=== PATIENT | female | born 1975 | race Caucasian/White ===

== ENCOUNTER → 2023-10-30 13:30 | Outpatient (REF) | payer MEDICARE, OTHER, SELFPAY | LOC: WOUND 13:30 | PROVIDERS: ATTENDING PHYSICIAN Surgery; FAMILY PHYSICIAN Family Medicine | DX: L97.522 Non-pressure chronic ulcer of other part of left foot with fat layer exposed (principal); E11.9 Type 2 diabetes mellitus without complications; I42.9 Cardiomyopathy, unspecified; Z95.810 Presence of automatic (implantable) cardiac defibrillator; I50.22 Chronic systolic (congestive) heart failure | CPT/HCPCS: 11042; 99203 ==

== ENCOUNTER → 2023-11-02 15:50 | Outpatient (REF) | payer MEDICARE, OTHER, SELFPAY | LOC: HWRAD 15:50 | PROVIDERS: ATTENDING PHYSICIAN Orthopaedic Surgery; FAMILY PHYSICIAN Family Medicine | DX: S90.32XA Contusion of left foot, initial encounter (principal) | CPT/HCPCS: 73700 ==

== ENCOUNTER 2023-11-05 06:39 | Emergency (ER) | payer MEDICARE, OTHER, SELFPAY ==
[2023-11-05 06:41] VITALS: BP 110/52
[2023-11-05 07:24] VITALS: BMI 30.8
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
[2023-11-05 08:02] LABS: % Basophils 0.6 % (0-2); % Eosinophils 1.8 % (0-6); % Immature Granulocytes 0.4 % (0-0.5); % Lymphocytes 28.7 % (20.5-51.1); % Monocytes 9.6 % (1.7-9.3); % Neutrophils 58.9 % (42.2-75.2); Absolute Basophils 0.1 10^3/uL (0-0.2); Absolute Eosinophils 0.2 10^3/uL (0-0.7); Absolute Lymphocytes 3.1 10^3/uL (1.2-3.4); Absolute Neutrophils 6.4 10^3/uL (1.4-6.5); Hematocrit 39.6 % (37.0-47.0); Hemoglobin 13.3 g/dL (12.0-16.0); Mean Corp Hgb Conc. 33.6 g/dL (33.0-37.0); Mean Corpuscular Hgb 29.4 pg (27.0-31.0); Mean Corpuscular Volume 87.6 fL (81.0-99.0); Mean Platelet Volume 11.2 fL (7.4-10.4); Nucleated Red Blood Cells % 0 %; Platelet Count 255 10^3/uL (130-400); Red Blood Cell Count 4.52 10^6/uL (4.20-5.40); White Blood Cell Count 10.8 10^3/uL (4.8-10.8)
[2023-11-05 08:17] LABS: Lactic Acid 0.8 mmol/L (0.7-2.0)
[2023-11-05 08:18] LABS: ALT (SGPT) 18 U/L (0-35); AST (SGOT) 22 U/L (14-36); Albumin 4.3 g/dl (3.5-5.0); Alkaline Phosphatase 69 U/L (38-126); Blood Urea Nitrogen 20 mg/dl (7-17); Calcium 9.6 mg/dl (8.4-10.2); Carbon Dioxide 29 mmol/L (22-30); Chloride 101 mmol/L (98-107); Estimated Creatinine Clearance 99 ml/min; Glucose 102 mg/dl (70-99); Sodium 135 mmol/L (135-145); Total Bilirubin 0.3 mg/dl (0.2-1.3); Total Protein 7.2 g/dl (6.3-8.2); eGFR > 60.00
[2023-11-05] MEDS: BACTRIM DS 800 MG/160 MG 1 TABLET PO (11:44)
[2023-11-05] MEDS: TORADOL 15 MG IV (11:45)
[2023-11-05] MEDS: VIBRAMYCIN 100 MG PO (11:45)
[2023-11-05 13:48] VITALS: BP 114/76
== END 2023-11-05 13:20 | disposition home or self-care (01) ==
LOC: EMR 06:39
PROVIDERS: Nurse Practitioner; EMERGENCY PHYSICIAN Emergency Medicine; FAMILY PHYSICIAN Family Medicine
DX: S91.302A Unspecified open wound, left foot, initial encounter (principal); X58.XXXA Exposure to other specified factors, initial encounter; E11.42 Type 2 diabetes mellitus with diabetic polyneuropathy; Z95.810 Presence of automatic (implantable) cardiac defibrillator; Z79.84 Long term (current) use of oral hypoglycemic drugs
CPT/HCPCS: 99284; 96374; 80053; 83605; 85025; 87040; 87070; 87147; 87186; 87205

== ENCOUNTER → 2023-11-06 13:52 | Outpatient (REF) | payer MEDICARE, OTHER, SELFPAY | LOC: WOUND 13:52 | PROVIDERS: ATTENDING PHYSICIAN Surgery; FAMILY PHYSICIAN Family Medicine | DX: L97.522 Non-pressure chronic ulcer of other part of left foot with fat layer exposed (principal); E11.9 Type 2 diabetes mellitus without complications; I42.9 Cardiomyopathy, unspecified; Z95.810 Presence of automatic (implantable) cardiac defibrillator; I50.22 Chronic systolic (congestive) heart failure | CPT/HCPCS: 99213 ==

== ENCOUNTER → 2023-11-22 10:22 | Outpatient (REF) | payer MEDICARE, OTHER, SELFPAY | LOC: RAD 10:22 | PROVIDERS: ATTENDING PHYSICIAN Orthopaedic Surgery; FAMILY PHYSICIAN Family Medicine | DX: M79.672 Pain in left foot (principal); S90.32XA Contusion of left foot, initial encounter | CPT/HCPCS: 76882 ==

== ENCOUNTER → 2023-12-06 10:34 | Outpatient (REF) | payer MEDICARE, OTHER, SELFPAY | LOC: RAD 10:34 | PROVIDERS: ATTENDING PHYSICIAN Student in an Organized Health Care Education/Training Program; FAMILY PHYSICIAN Family Medicine; REFERRING PHYSICIAN Orthopaedic Surgery | DX: M79.672 Pain in left foot (principal) | CPT/HCPCS: 76881 ==

== ENCOUNTER → 2024-01-24 08:29 | Outpatient (REF) | payer MEDICARE, OTHER, SELFPAY | LOC: RAD 08:29 | PROVIDERS: ATTENDING PHYSICIAN Student in an Organized Health Care Education/Training Program; FAMILY PHYSICIAN Family Medicine | DX: T14.8XXA Other injury of unspecified body region, initial encounter (principal); M79.672 Pain in left foot | CPT/HCPCS: 76881 ==

== ENCOUNTER → 2024-05-31 15:59 | Outpatient (REF) | payer MEDICARE, OTHER, SELFPAY | LOC: WDC 15:59 | PROVIDERS: ATTENDING PHYSICIAN Obstetrics & Gynecology; FAMILY PHYSICIAN Family Medicine | DX: Z12.31 Encounter for screening mammogram for malignant neoplasm of breast (principal); R92.8 Other abnormal and inconclusive findings on diagnostic imaging of breast | CPT/HCPCS: 77063; 77067 ==

== ENCOUNTER 2024-08-11 16:15 | Emergency (ER) | payer MEDICARE, OTHER, SELFPAY ==
[2024-08-11 16:21] VITALS: BP 108/66
[2024-08-11 16:47] LABS: % Basophils 0.3 % (0-2); % Immature Granulocytes 0.3 % (0-0.5); % Lymphocytes 21.2 % (20.5-51.1); % Neutrophils 68.2 % (42.2-75.2); Absolute Eosinophils 0.1 10^3/uL (0-0.7); Absolute Lymphocytes 2.2 10^3/uL (1.2-3.4); Absolute Monocytes 0.9 10^3/uL (0.1-0.6); Absolute Neutrophils 7.1 10^3/uL (1.4-6.5); Hematocrit 40.2 % (37.0-47.0); Mean Corp Hgb Conc. 34.8 g/dL (33.0-37.0); Mean Corpuscular Hgb 30.7 pg (27.0-31.0); Mean Corpuscular Volume 88.2 fL (81.0-99.0); Mean Platelet Volume 10.6 fL (7.4-10.4); Nucleated Red Blood Cells % 0 %; Platelet Count 241 10^3/uL (130-400); Red Blood Cell Count 4.56 10^6/uL (4.20-5.40); Red Cell Dist. Width 11.9 % (11.5-14.5); White Blood Cell Count 10.4 10^3/uL (4.8-10.8)
[2024-08-11 17:00] LABS: ALT (SGPT) 27 U/L (0-35); AST (SGOT) 26 U/L (14-36); Albumin 4.4 g/dl (3.5-5.0); Alkaline Phosphatase 46 U/L (38-126); Blood Urea Nitrogen 15 mg/dl (7-17); Calcium 10.1 mg/dl (8.4-10.2); Carbon Dioxide 31 mmol/L (22-30); Chloride 96 mmol/L (98-107); Glucose 104 mg/dl (70-99); Lipase 109 U/L (23-300); Potassium 3.7 mmol/L (3.5-5.1); Sodium 137 mmol/L (135-145); Total Bilirubin 0.6 mg/dl (0.2-1.3); Total Protein 7.3 g/dl (6.3-8.2); eGFR > 60.00
[2024-08-11 17:42] LABS: Urine Albumin Negative (Neg - Trace); Urine Bilirubin Negative (Negative); Urine Character Very Cloudy (Clear); Urine Color Yellow; Urine Glucose 3+ (Negative); Urine Ketone Negative (Negative); Urine Leukocyte Negative (Negative); Urine Nitrite Negative (Negative); Urine Occult Blood Negative (Negative); Urine Specific Gravity 1.015 (<1.030); Urine Urobilinogen Negative (Neg - 1+)
--- NOTE | 2024-08-11 18:19 | EDRN ---
Shauna YUEN in room w/ pt.
--- NOTE | 2024-08-11 18:20 | EDRN ---
Pt arrives for severe abd pain all over abd, tight feeling, constant, 10/10. Pt states it started on Monday. Pt states she has been on Ozempec for the past year. Pt has had nausea, no vomiting today but did yesterday. Pt's last BM per pt was today
and normal for her. Pt states no urinary problems (takes lasix and at her normal). Unable to eat yesterday or today. Pt only able to take small sips.
[2024-08-11 18:23] VITALS: BMI 29.2
--- NOTE | 2024-08-11 18:30 | ED.GENMED ---
History of Present Illness
General
Chief Complaint: Abdominal Pain
Source: patient
Exam Limitations: none
Time Seen by Provider: 08/11/24 17:59
History of Present Illness
History of Present Illness:
This is a 49 year old female that comes in with c/o abd pain. States that she has been on Ozempic for the past 1.5 years. States that she is at the highest dose of 2mg. States that she saw her PCP last week. 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 States that some to the medication squared out. States that she put on a new needle and set it for 1mg and gave herself a second injection. States that now she has this
sharp abd pain, was vomiting yesterday and the pain was so bad today that she was crying. States that she is nauseated. States that she had chills on the way here. States that she normally has a headache. Denies any fever, chest pain, SOB, vomiting
today, diarrhea, dizziness, urinary burning.
Past History
Past History
ED Past Medical History: Hypercholesterolemia, NIDDM, Psychiatric (Anxiety, Depression) and Other (Hereditary cardiomyopathy status post AICD)
ED Past Surgical History: Cardiac (Pacer/defib), (X 2) and Other (Deviated septum, Vein stripping with vein ablation, tummy tuck)
Social History
Tobacco: Non-smoker
Alcohol: None
Personal:
Living: with family
Family History
Family History: Other (Hereditary cardiomyopathy)
Review of Systems
Review of Systems
All Other Systems: ROS reviewed and negative except as documented in HPI and ROS
Constitutional: Reports chills; Denies fever
EENT: Reports no symptoms
Respiratory: Reports no symptoms; Denies cough or trouble breathing
Cardiac: Reports no symptoms; Denies chest pain
ABD/GI: Reports abdominal pain and nausea; Denies vomiting or diarrhea
: Reports no symptoms; Denies dysuria, frequency or urgency
Musculoskeletal: Reports no symptoms
Skin: Reports no symptoms
Neurological: Reports headache (this is normal for patient); Denies dizzy
Psychiatric: Reports no symptoms
Phy Exam
General Physical Exam
General Presentation: mild distress
General age: appears stated age
General Skin: warm and dry
General Habitus: normal
General Mental: alert
General Hydration: dry mucous membranes
ENT Exam
ENT Exam: TM's normal, pharynx normal and neck supple
Eye Exam
Eye Exam: EOMI
Cardiovascular Exam
Cardiovascular Exam: regular rate/rhythm, no edema, no murmur and normal peripheral pulses
Pulmonary Exam
Pulmonary Exam: lungs clear, no respiratory distress, no rales, chest non tender, no crackles, no rhonchi, no wheezing and no cough
Gastrointestinal Exam
Gastrointestinal Exam: normal bowel sounds, soft, no organomegaly, no pulsatile mass, non distended and tender (epigastric and upper abd tenderness with palpation)
Musculoskeletal Exam
Musculoskeletal Exam: full ROM and no edema
Skin Exam
Skin Exam: normal color, warm/dry, no rash and no petechia
Psychiatric Exam
Psychiatric Exam: normal mood/affect
Course
Orders/Labs/Results
Orders:
Orders
08/11/24 16:35
Complete Blood Count/With Diff Urgent
Comprehensive Metabolic Panel Urgent
HCG, Serum Qualitative Screen Urgent
Comment: ADDON
Lipase Urgent
08/11/24 17:09
Urinalysis Reflex To Culture Urgent
Date Specimen was Collected: 08/11/24
Time Specimen was Collected: 16:29
08/11/24 18:29
0.9% Sodium Chloride 1000 ml [Nss] 1,000 ml IV BOLUS
Ketorolac [Toradol] 30 mg IV NOW STA
Pantoprazole [Protonix IV] 40 mg IV NOW STA
US Abdomen Complete/Upper Urgent
Comment:
Reason For Exam: Upper abd pain
08/11/24 18:32
Ondansetron Injectable [Zofran] 4 mg IV NOW STA
08/11/24 20:53
CT Abd/pelvis W Iv Cont Urgent
Comment:
Reason For Exam: Right lower abd pain
08/11/24 20:57
Add On- LAB Urgent
Tests Added?: HCG
Abnormal Lab Results
08/11/24 08/11/24
16:35 17:09
MPV 10.6 H fL
(7.4-10.4)
Absolute Neuts (auto) 7.1 H 10^3/uL
(1.4-6.5)
Absolute Monos (auto) 0.9 H 10^3/uL
(0.1-0.6)
Chloride 96 L mmol/L
(98-107)
Carbon Dioxide 31 H mmol/L
(22-30)
Glucose 104 H mg/dl
(70-99)
Urine Glucose 3+ A
(Negative)
08/11/24 16:35
08/11/24 16:35
chloride slightly low. carbon dioxide slightly elevated. Glucose nonfasting. Urine negative for infection. Lipase normal at 109
Vital Signs
Initial and Last Documented VS:
Initial Vital Signs
Temp Pulse Resp BP Pulse Ox
97.7 F 65 18 108/66 100
08/11/24 16:21 08/11/24 16:21 08/11/24 16:21 08/11/24 16:21 08/11/24 16:21
Last Documented Vital Signs
Temp Pulse Resp BP Pulse Ox
97.7 F 58 16 105/61 98
08/11/24 16:21 08/11/24 18:35 08/11/24 18:35 08/11/24 21:00 08/11/24 21:00
MDM/Problems Addressed
Differential Diagnosis Includes:
Gallbladder disease, Pancreatitis,
will get labs US, given IV fluids and medicate for nausea and pain.
MDM/Problems Addressed:
This is a 49 year old female that comes in with c/o abd pain. States that she has been on Ozempic for the past 1.5 years. State that she had given herself her injection and the needle popped out so she gave herself another 1mg but she didn't know
how much she got in the first time. State that she is on 2mg and that is the max dose. States that she has now had sharp abd pain with vomiting yesterday and nausea today with the pain.
Will check labs, US, give IV fluids and medicate for pain.
Back into see patient. Explained that the US shows that her liver is slightly enlarged but otherwise normal. Will get CT scan.
Back into see patient. Patient states that she is feeling better. Explained that her CT scan is also normal. Patient to increase her water intake daily. Follow up with the family doctor. Explained that she should not take a second injection even if
some of the medication squats out. Patient to return with any concerns.
Chronic conditions affecting care: DM
Acute Exacerbation and/or Progression of Chronic Illness: DM
*Radiology
Radiology exam reviewed: radiology read reviewed (US=Hepatomegaly. No gallstones or bile duct dilation. The pancreas and aorta/IVC are obscured by bowel gas. CT-NO significant abnormality identified in the abdomen or pelvis, as described above.
Normal appendix. )
*Pulse Oximetry
Patient hypoxic: no
*EKG
Interpreted by ED Provider?: NA
Rate: EKG- N/A
*Retirement Village Manager Interpretation
Rate: Retirement Village Manager- N/A
*Critical Care Note
Total Time (30-74mins, 75-104mins- exclusive of procedures): Not Applicable
ED Attending Note
-
Portions of this chart may have been created with voice recognition software.� Occasional wrong word or��sound alike� substitutions may have occurred due to the inherent limitations of voice recognition software.
Discharge Plan
Departure
Patient Disposition: Home (Routine Discharge)
Date of Disposition: 08/11/24
Time of Disposition: 23:40
Patient with high blood pressure during this ER visit?: No
Condition: Good
Covid-19: Not Applicable
Discharge Problem:
Abdominal pain
Instructions: Abdominal Pain
Prescriptions:
No Action
furosemide 40 MG tablet
40 mg PO DAILY
fexofenadine [Heydi] 60 MG tablet
60 mg PO DAILY PRN (Reason: seasonal allergies)
lisinopril 20 MG tablet
10 mg PO HS
spironolactone 25 MG tablet
25 mg PO DAILY
lorazepam 1 MG tablet
1 mg PO Q4HPRN PRN (Reason: anxiety)
magnesium 200 MG tablet
400 mg PO DAILY
atorvastatin 10 MG tablet
20 mg PO DAILY
atomoxetine [Strattera] 60 MG capsule
60 mg PO DAILY
lorazepam 2 MG tablet
2 mg PO HS
diphenhydramine HCl [Banophen] 25 MG capsule
25 mg PO Q4HPRN PRN (Reason: allergies)
sitagliptin phosphate [Januvia] 100 MG tablet
100 mg PO DAILY
ivabradine [Corlanor] 7.5 MG tablet
7.5 mg PO BID
empagliflozin [Jardiance] 10 MG tablet
10 mg PO DAILY
melatonin 3 MG tablet
12 mg PO HS
Ascorbic Acid/Ascorbate Sodium [Vitamin C 500 Mg Tablet Chew] 500 MG Tab.Chew
1,500 mg PO DAILY
bupropion HCl 100 MG tablet sustained-release 12 hr
100 mg PO DAILY
vitamin B complex 1 TAB tablet
1 tab PO DAILY
kkbyhltb-mvi-vavfs acid-lutein 1 EACH tablet,chewable
2 ea PO DAILY
inulin [Fiber Gummies] 2 GM tablet,chewable
4 gm PO QPM
carvedilol phosphate 40 MG capsule, ER multiphase 24 hr
80 mg PO HS
oxycodone-acetaminophen 5 MG/325 MG tablet
1 tab PO Q6HPRN PRN (Reason: moderate post procedure pain) Qty: 8 0RF
amoxicillin-pot clavulanate 875-125 mg tablet
1 tab PO BID Qty: 20 0RF
mupirocin 2 % ointment
1 applic topical TID Qty: 50 0RF
Referrals:
Sarthak Matthews MD [Family Provider] - Follow up in 2-3 days
Activity Restrictions/Additional Instructions:
As discussed, your blood work is normal and your urine is negative for infection. Please increase your water intake to 8-8oz glasses daily. Please do not take a second injection even if any medication squirts out. Follow up with the family doctor
for recheck. IF YOU HAVE ANY OTHER CONCERNS PLEASE RETURN TO THE EMERGENCY ROOM .
Interventions
Interventions:
*Risk Screen - Suicide Last Done: 08/11/24 16:21
*General Assessment Last Done: 08/11/24 18:24
*Neglect/Abuse Screening Last Done: 08/11/24 16:21
ED- Fall Risk Assessment Last Done: 08/11/24 18:24
*ED COVID-19 Vaccine History Last Done: 08/11/24 18:24
KZ-Vccpfk-Uwlrikwqab Assessment Last Done: 08/11/24 18:50
Discharge Date and Time
Print Language: WELSH
[2024-08-11 18:35] VITALS: BP 92/57
[2024-08-11] MEDS: NSS 1000 IV (18:52)
[2024-08-11] MEDS: TORADOL 30 MG IV (18:53)
[2024-08-11] MEDS: PROTONIX IV 40 MG IV (18:53)
[2024-08-11] MEDS: ZOFRAN 4 MG IV (18:54)
--- NOTE | 2024-08-11 19:29 | EDRN ---
Recorded notes from 18:50 done by Renée Wu RN not Renée Horvath RN.
[2024-08-11 20:37] VITALS: BP 101/64
[2024-08-11 21:00] VITALS: BP 105/61
[2024-08-11 21:03] VITALS: BP 93/57
[2024-08-11 21:31] LABS: HCG, Serum Qualitative Screen Negative
[2024-08-11 22:00] VITALS: BP 91/49
[2024-08-12 00:08] VITALS: BP 98/56
[2024-08-12 00:11] VITALS: BP 98/56
== END 2024-08-12 00:15 | disposition home or self-care (01) ==
LOC: EMR 16:15
PROVIDERS: Emergency Medicine; EMERGENCY PHYSICIAN Emergency Medicine; FAMILY PHYSICIAN Surgery
DX: R10.9 Unspecified abdominal pain (principal); E78.00 Pure hypercholesterolemia, unspecified; E11.9 Type 2 diabetes mellitus without complications; F41.8 Other specified anxiety disorders; I42.9 Cardiomyopathy, unspecified; Z79.85 Long-term (current) use of injectable non-insulin antidiabetic drugs; Z95.810 Presence of automatic (implantable) cardiac defibrillator
CPT/HCPCS: 99284; 96374; 96375; 96361; 74177; 76700; 80053; 81003; 83690; 84703; 85025; Q9967

== ENCOUNTER 2024-08-25 18:12 | Emergency (ER) | payer MEDICARE, SELFPAY ==
[2024-08-25 18:14] VITALS: BP 125/87
[2024-08-25 18:29] LABS: % Basophils 0.5 % (0-2); % Eosinophils 1.2 % (0-6); % Immature Granulocytes 0.3 % (0-0.5); % Lymphocytes 21.2 % (20.5-51.1); % Monocytes 9.3 % (1.7-9.3); % Neutrophils 67.5 % (42.2-75.2); Absolute Basophils 0.1 10^3/uL (0-0.2); Absolute Eosinophils 0.1 10^3/uL (0-0.7); Absolute Lymphocytes 2.2 10^3/uL (1.2-3.4); Absolute Monocytes 0.9 10^3/uL (0.1-0.6); Absolute Neutrophils 6.8 10^3/uL (1.4-6.5); Hematocrit 42.5 % (37.0-47.0); Hemoglobin 14.7 g/dL (12.0-16.0); Mean Corp Hgb Conc. 34.6 g/dL (33.0-37.0); Mean Corpuscular Volume 86.7 fL (81.0-99.0); Mean Platelet Volume 10.5 fL (7.4-10.4); Nucleated Red Blood Cells % 0 %; Platelet Count 265 10^3/uL (130-400); Red Cell Dist. Width 11.9 % (11.5-14.5); White Blood Cell Count 10.1 10^3/uL (4.8-10.8)
[2024-08-25 18:45] LABS: Lactic Acid 1.4 mmol/L (0.7-2.0)
[2024-08-25 18:48] LABS: HCG, Serum Qualitative Screen Negative
[2024-08-25 18:53] LABS: ALT (SGPT) 22 U/L (0-35); AST (SGOT) 28 U/L (14-36); Albumin 4.7 g/dl (3.5-5.0); Alkaline Phosphatase 50 U/L (38-126); Blood Urea Nitrogen 15 mg/dl (7-17); Calcium 10.2 mg/dl (8.4-10.2); Carbon Dioxide 25 mmol/L (22-30); Chloride 99 mmol/L (98-107); Glucose 122 mg/dl (70-99); Lipase 124 U/L (23-300); Potassium 4.4 mmol/L (3.5-5.1); Sodium 133 mmol/L (135-145); Total Bilirubin 0.8 mg/dl (0.2-1.3); Total Protein 7.7 g/dl (6.3-8.2); eGFR > 60.00
[2024-08-25] MEDS: TORADOL 30 MG IV (19:54)
[2024-08-25] MEDS: ZOFRAN 4 MG IV (19:54)
[2024-08-25] MEDS: NSS 1000 IV (19:59)
[2024-08-25 20:01] VITALS: BMI 29.1
[2024-08-25] MEDS: ATIVAN 1 MG PO (20:27)
[2024-08-25] MEDS: MORPHINE SULFATE 4 MG IV (20:58)
--- NOTE | 2024-08-25 23:25 | ED.GENMED ---
History of Present Illness
General
Chief Complaint: Abdominal Symptoms
Source: patient
Exam Limitations: none
Time Seen by Provider: 08/25/24 19:32
Nursing documentation reviewed up to this point in time: agreed with
History of Present Illness
History of Present Illness:
Patient to ED wt complaint of severe diffuse abd. pain. SHe was seen here 2 weeks ago for same. Labs, CT neg at that time. Denies fever/chills. Reports nausea and vomiting. States she is currently on ozempic. She held a dose after her last ED
visit and her symptoms resolved. She took her regular dose on Monday and now symptoms have returned. Brought to ED by spouse for eval.
Past History
Past History
ED Past Medical History: Hypercholesterolemia, NIDDM, Psychiatric (Anxiety, Depression) and Other (Hereditary cardiomyopathy status post AICD)
ED Past Surgical History: Cardiac (Pacer/defib), (X 2) and Other (Deviated septum, Vein stripping with vein ablation, tummy tuck)
Social History
Tobacco: Non-smoker
Alcohol: None
Personal:
Living: with family
Family History
Family History: Other (Hereditary cardiomyopathy)
Review of Systems
Review of Systems
Allergies reviewed?: Yes
All Other Systems: ROS reviewed and negative except as documented in HPI and ROS
Constitutional: Reports no symptoms
EENT: Reports no symptoms
Respiratory: Reports no symptoms
Cardiac: Reports no symptoms
ABD/GI: Reports abdominal pain, nausea and vomiting
: Reports no symptoms
Musculoskeletal: Reports no symptoms
Skin: Reports no symptoms
Neurological: Reports no symptoms
Psychiatric: Reports no symptoms
Phy Exam
General Physical Exam
General Presentation: moderate distress
General age: appears stated age
General Skin: warm and dry
General Habitus: normal
General Mental: alert
Cardiovascular Exam
Cardiovascular Exam: regular rate/rhythm and no edema
Pulmonary Exam
Pulmonary Exam: lungs clear and no respiratory distress
Gastrointestinal Exam
Gastrointestinal Exam: normal bowel sounds, soft, no organomegaly, non distended and no cva tenderness
Palpation: generalized: Moderate tenderness
Musculoskeletal Exam
Musculoskeletal Exam: full ROM and neuro vasc intact
Skin Exam
Skin Exam: normal color, warm/dry and no rash
Psychiatric Exam
Psychiatric Exam: normal mood/affect
Course
Orders/Labs/Results
Orders:
Orders
08/25/24 18:17
Test Result ONCE
08/25/24 18:22
Complete Blood Count/With Diff Urgent
Comprehensive Metabolic Panel Urgent
HCG, Serum Qualitative Screen Urgent
Lactic Acid Urgent
Lipase Urgent
08/25/24 18:38
Electrocardiogram (*1) Urgent
Reason for Study: Palpitations
EKG- Treatment ONCE
08/25/24 19:44
0.9% Sodium Chloride 1000 ml [Nss] 1,000 ml IV BOLUS
Ketorolac [Toradol] 30 mg IV NOW STA
Ondansetron Injectable [Zofran] 4 mg IV NOW STA
08/25/24 20:26
Lorazepam [Ativan] 1 mg .ROUTE .STK-MED ONE
08/25/24 20:27
Lorazepam [Ativan] 1 mg PO NOW STA
08/25/24 20:57
Morphine Sulfate 4 mg .ROUTE .STK-MED ONE
Morphine Sulfate 4 mg IV NOW STA
08/25/24 21:05
CT Abd/pelvis W Iv Cont Urgent
Comment:
Reason For Exam: severe abd. pain
Abnormal Lab Results
08/25/24
18:22
MPV 10.5 H fL
(7.4-10.4)
Absolute Neuts (auto) 6.8 H 10^3/uL
(1.4-6.5)
Absolute Monos (auto) 0.9 H 10^3/uL
(0.1-0.6)
Sodium 133 L mmol/L
(135-145)
Glucose 122 H mg/dl
(70-99)
08/25/24 18:22
08/25/24 18:22
Vital Signs
Initial and Last Documented VS:
Initial Vital Signs
Temp Pulse Resp BP Pulse Ox
97.3 F 89 20 125/87 99
08/25/24 18:14 08/25/24 18:14 08/25/24 18:14 08/25/24 18:14 08/25/24 18:14
Last Documented Vital Signs
Temp Pulse Resp BP Pulse Ox
98.6 F 95 18 125/87 100
08/25/24 22:24 08/25/24 20:06 08/25/24 20:06 08/25/24 18:14 08/25/24 21:00
*Radiology
Radiology exam reviewed: radiology read reviewed
*Pulse Oximetry
Patient hypoxic: no
*Critical Care Note
Total Time (30-74mins, 75-104mins- exclusive of procedures): Not Applicable
Update Note
Update Note:
Patient improved iwth IVF and IV morphine. CT reviewed, no findings to explain her symptoms. She is concerned that the ozempic she is prescribed is causing her symptoms. SHe will hold dose and follow up with PCP in AM. VSS, afebrile. Labs
reviewed with her. Given instructions on s/s to return to ED and she is agreeable to plan.
ED Attending Note
-
Portions of this chart may have been created with voice recognition software.� Occasional wrong word or��sound alike� substitutions may have occurred due to the inherent limitations of voice recognition software.
Discharge Plan
Departure
Patient Disposition: Home (Routine Discharge)
Date of Disposition: 08/25/24
Time of Disposition: 22:11
Patient with high blood pressure during this ER visit?: No
Condition: Good
Covid-19: Not Applicable
Discharge Problem:
Abdominal pain
Instructions: Abdominal Pain
Prescriptions:
No Action
furosemide 40 MG tablet
40 mg PO DAILY
fexofenadine [Heydi] 60 MG tablet
60 mg PO DAILY PRN (Reason: seasonal allergies)
lisinopril 20 MG tablet
10 mg PO HS
spironolactone 25 MG tablet
25 mg PO DAILY
lorazepam 1 MG tablet
1 mg PO Q4HPRN PRN (Reason: anxiety)
magnesium 200 MG tablet
400 mg PO DAILY
atorvastatin 10 MG tablet
20 mg PO DAILY
atomoxetine [Strattera] 60 MG capsule
60 mg PO DAILY
lorazepam 2 MG tablet
2 mg PO HS
diphenhydramine HCl [Banophen] 25 MG capsule
25 mg PO Q4HPRN PRN (Reason: allergies)
sitagliptin phosphate [Januvia] 100 MG tablet
100 mg PO DAILY
ivabradine [Corlanor] 7.5 MG tablet
7.5 mg PO BID
empagliflozin [Jardiance] 10 MG tablet
10 mg PO DAILY
melatonin 3 MG tablet
12 mg PO HS
Ascorbic Acid/Ascorbate Sodium [Vitamin C 500 Mg Tablet Chew] 500 MG Tab.Chew
1,500 mg PO DAILY
bupropion HCl 100 MG tablet sustained-release 12 hr
100 mg PO DAILY
vitamin B complex 1 TAB tablet
1 tab PO DAILY
hsqkieuw-brd-hrifw acid-lutein 1 EACH tablet,chewable
2 ea PO DAILY
inulin [Fiber Gummies] 2 GM tablet,chewable
4 gm PO QPM
carvedilol phosphate 40 MG capsule, ER multiphase 24 hr
80 mg PO HS
oxycodone-acetaminophen 5 MG/325 MG tablet
1 tab PO Q6HPRN PRN (Reason: moderate post procedure pain) Qty: 8 0RF
amoxicillin-pot clavulanate 875-125 mg tablet
1 tab PO BID Qty: 20 0RF
mupirocin 2 % ointment
1 applic topical TID Qty: 50 0RF
Referrals:
Alejandro Graves MD [Active] - Call in 1-3 days for appt
Sarthak Matthews MD [Family Provider] -
Activity Restrictions/Additional Instructions:
Return to the emergency department immediately for any changes in/worsening of your symptoms.
Interventions
Interventions:
*Risk Screen - Suicide Last Done: 08/25/24 22:31
*General Assessment Last Done: 08/25/24 18:14
*Neglect/Abuse Screening Last Done: 08/25/24 20:00
ED- Fall Risk Assessment Last Done: 08/25/24 20:06
*ED COVID-19 Vaccine History Last Done: 08/25/24 20:00
*Nursing Disposition Last Done: 08/25/24 22:31
XA-Lffngh-Aqdjomirxb Assessment Last Done: 08/25/24 20:06
Discharge Date and Time
Discharge Date/Time: 08/25/24 22:32
Print Language: LIBYAN
== END 2024-08-25 22:32 | disposition home or self-care (01) ==
LOC: EMR 18:12
PROVIDERS: EMERGENCY PHYSICIAN Emergency Medicine; FAMILY PHYSICIAN Surgery
DX: R10.84 Generalized abdominal pain (principal); R11.2 Nausea with vomiting, unspecified; E11.9 Type 2 diabetes mellitus without complications; E78.00 Pure hypercholesterolemia, unspecified; I42.9 Cardiomyopathy, unspecified; Z95.810 Presence of automatic (implantable) cardiac defibrillator; Z79.85 Long-term (current) use of injectable non-insulin antidiabetic drugs
CPT/HCPCS: 96374; 96375; 96361; 99284; 74177; 80053; 83605; 83690; 84703; 85025; 93005; Q9967

== ENCOUNTER 2025-04-03 22:47 | Emergency (ER) | payer MEDICARE, SELFPAY ==
[2025-04-03 22:48] VITALS: BP 95/66
[2025-04-03 23:35] VITALS: BP 98/56
[2025-04-03 23:49] LABS: Hematocrit 42.9 % (37.0-47.0); Hemoglobin 14.7 g/dL (12.0-16.0); Mean Corp Hgb Conc. 34.3 g/dL (33.0-37.0); Mean Corpuscular Volume 86.8 fL (81.0-99.0); Nucleated Red Blood Cells % 0 %; Platelet Count 224 10^3/uL (130-400); Red Cell Dist. Width 12.4 % (11.5-14.5)
[2025-04-04] VITALS: BP 98/72
[2025-04-04 00:08] LABS: ALT (SGPT) 23 U/L (0-35); AST (SGOT) 23 U/L (14-36); Albumin 4.7 g/dl (3.5-5.0); Alkaline Phosphatase 49 U/L (38-126); Blood Urea Nitrogen 19 mg/dl (7-17); Calcium 10.0 mg/dl (8.4-10.2); Carbon Dioxide 30 mmol/L (22-30); Chloride 100 mmol/L (98-107); Glucose 125 mg/dl (70-99); Potassium 3.6 mmol/L (3.5-5.1); Sodium 138 mmol/L (135-145); Total Protein 7.8 g/dl (6.3-8.2); eGFR > 60.00
[2025-04-04] MEDS: NSS 1000 IV (00:11)
[2025-04-04] MEDS: REGLAN 5 MG IV (00:12)
--- NOTE | 2025-04-04 00:20 | ED.GENMED ---
History of Present Illness
General
Chief Complaint: Abdominal Symptoms
Time Seen by Provider: 04/03/25 23:27
History of Present Illness
History of Present Illness:
50-year-old female with history of CHF with pacemaker and defibrillator, diabetes, hypertension presenting to the emergency department for abdominal cramping with vomiting. Patient reports symptoms started earlier. Notes similar in the past with
her Ozempic. Reports on Monday she gave herself her injection and believes that she may have given herself too much due to malfunction with the injector. She had similar symptoms in August, at which time she was also given too much. Denies
chest pain or difficulty breathing. Reports the cramping has improved. Reports surgical history of and a tummy tuck. Denies fever. Denies changes in stool. Denies additional acute medical complaints
Past History
Past History
ED Past Medical History: Hypercholesterolemia, NIDDM, Psychiatric (Anxiety, Depression) and Other (Hereditary cardiomyopathy status post AICD)
ED Past Surgical History: Cardiac (Pacer/defib), (X 2) and Other (Deviated septum, Vein stripping with vein ablation, tummy tuck)
Social History
Tobacco: Non-smoker
Alcohol: None
Personal:
Living: with family
Family History
Family History: Other (Hereditary cardiomyopathy)
Phy Exam
Physical Exam
Physical Exam:
General: Well-appearing, no clinical signs of dehydration, nontoxic and in no acute distress
HEENT: protecting airway
Neck: appears supple
CV: Normal heart rate, regular rhythm, no evidence of cyanosis
Resp: No accessory muscle use, no increased work of breathing, lungs clear to auscultation bilaterally
Abd: Soft and non-distended, no tenderness to palpation
Extremities: No deformities, no swelling
Neuro: alert, no focal neurologic deficit
: deferred
Rectal: deferred
Psych: Normal affect
Skin: Intact
Course
Orders/Labs/Results
Orders:
Orders
04/03/25 23:38
CMP [Comprehensive Metabolic Panel] Urgent
Complete Blood Count/With Diff Urgent
04/03/25 23:58
0.9% Sodium Chloride 1000 ml [Nss] 1,000 ml IV BOLUS
Metoclopramide [Reglan] 5 mg IV NOW STA
04/04/25 00:27
Urinalysis Reflex To Culture Urgent
Date Specimen was Collected: 04/04/25
Time Specimen was Collected: 00:25
04/04/25 00:54
Morphine Sulfate 4 mg IV NOW STA
Abnormal Lab Results
04/03/25 04/04/25
23:38 00:27
MPV 10.8 H fL
(7.4-10.4)
Absolute Neuts (auto) 7.5 H 10^3/uL
(1.4-6.5)
Absolute Monos (auto) 1.1 H 10^3/uL
(0.1-0.6)
Lymphocytes % 18.0 L %
(20.5-51.1)
Monocytes % 10.3 H %
(1.7-9.3)
BUN 19 H mg/dl
(7-17)
Glucose 125 H mg/dl
(70-99)
Urine Glucose 4+ A
(Negative)
04/03/25 23:38
04/03/25 23:38
Vital Signs
Initial and Last Documented VS:
Initial Vital Signs
Temp Pulse Resp BP Pulse Ox
97.9 F 69 15 95/66 100
04/03/25 22:48 04/03/25 22:48 04/03/25 22:48 04/03/25 22:48 04/03/25 22:48
Last Documented Vital Signs
Temp Pulse Resp BP Pulse Ox
97.9 F 69 15 95/66 100
04/03/25 22:48 04/03/25 22:48 04/03/25 22:48 04/03/25 22:48 04/04/25 00:21
MDM/Problems Addressed
MDM/Problems Addressed:
50-year-old female with history of diabetes on Ozempic presenting for nausea and vomiting and abdominal cramping. Vital signs are significant for mildly low blood pressure.
On exam patient is resting comfortably, no acute distress. Benign abdominal exam, no tenderness to palpation. Patient is afebrile, nontoxic. Suspected enteritis versus medication side effect from Ozempic. Patient does have some dry mucous
membranes, slightly low blood pressure. For this reason we will start patient on IV fluids and administer antiemetics. Will send laboratory analysis. No indication for advanced abdominal imaging at this time.
02:30 -Labs unremarkable. On reassessment, patient resting comfortably, no acute distress. Feel stable for discharge with close outpatient primary care follow-up and continued supportive therapy. Return precautions the patient verbalized
understanding
*Pulse Oximetry
SaO2: 100
Patient hypoxic: no
*Critical Care Note
Total Time (30-74mins, 75-104mins- exclusive of procedures): Not Applicable
ED Attending Note
-
Portions of this chart may have been created with voice recognition software.� Occasional wrong word or��sound alike� substitutions may have occurred due to the inherent limitations of voice recognition software.
Discharge Plan
Departure
Prescriptions:
No Action
furosemide 40 MG tablet
40 mg PO DAILY
fexofenadine [Heydi] 60 MG tablet
60 mg PO DAILY PRN (Reason: seasonal allergies)
lisinopril 20 MG tablet
10 mg PO HS
spironolactone 25 MG tablet
25 mg PO DAILY
lorazepam 1 MG tablet
1 mg PO Q4HPRN PRN (Reason: anxiety)
magnesium 200 MG tablet
400 mg PO DAILY
atorvastatin 10 MG tablet
20 mg PO DAILY
atomoxetine [Strattera] 60 MG capsule
60 mg PO DAILY
lorazepam 2 MG tablet
2 mg PO HS
diphenhydramine HCl [Banophen] 25 MG capsule
25 mg PO Q4HPRN PRN (Reason: allergies)
sitagliptin phosphate [Januvia] 100 MG tablet
100 mg PO DAILY
ivabradine [Corlanor] 7.5 MG tablet
7.5 mg PO BID
empagliflozin [Jardiance] 10 MG tablet
10 mg PO DAILY
melatonin 3 MG tablet
12 mg PO HS
Ascorbic Acid/Ascorbate Sodium [Vitamin C 500 Mg Tablet Chew] 500 MG Tab.Chew
1,500 mg PO DAILY
bupropion HCl 100 MG tablet sustained-release 12 hr
100 mg PO DAILY
vitamin B complex 1 TAB tablet
1 tab PO DAILY
gpjicejn-dhd-lvgwf acid-lutein 1 EACH tablet,chewable
2 ea PO DAILY
inulin [Fiber Gummies] 2 GM tablet,chewable
4 gm PO QPM
carvedilol phosphate 40 MG capsule, ER multiphase 24 hr
80 mg PO HS
oxycodone-acetaminophen 5 MG/325 MG tablet
1 tab PO Q6HPRN PRN (Reason: moderate post procedure pain) Qty: 8 0RF
amoxicillin-pot clavulanate 875-125 mg tablet
1 tab PO BID Qty: 20 0RF
mupirocin 2 % ointment
1 applic topical TID Qty: 50 0RF
Referrals:
Eunice Pardo, DO [Family Provider]
Interventions
Interventions:
*Risk Screen - Suicide Last Done: 04/03/25 22:48
*General Assessment Last Done: 04/03/25 22:48
*Neglect/Abuse Screening Last Done: 04/03/25 22:48
*ED- Fall Risk Assessment Last Done: 04/03/25 23:28
*ED COVID-19 Vaccine History Last Done: 04/03/25 23:28
HK-Zwetsu-Jfrafgzbow Assessment Last Done: 04/03/25 23:28
Discharge Date and Time
Print Language: NICARAGUAN
[2025-04-04 00:58] LABS: Urine Character Clear (Clear)
[2025-04-04 01:00] VITALS: BP 91/59
[2025-04-04] MEDS: MORPHINE SULFATE 4 MG IV (01:12)
[2025-04-04 02:00] VITALS: BP 101/62
[2025-04-04 02:32] VITALS: BMI 29.0
[2025-04-04 02:42] VITALS: BP 101/62
== END 2025-04-04 02:42 | disposition home or self-care (01) ==
LOC: EMR 22:47
PROVIDERS: EMERGENCY PHYSICIAN Student in an Organized Health Care Education/Training Program; FAMILY PHYSICIAN Family Medicine
DX: R11.2 Nausea with vomiting, unspecified (principal); R10.9 Unspecified abdominal pain; E11.9 Type 2 diabetes mellitus without complications; E78.00 Pure hypercholesterolemia, unspecified; I11.0 Hypertensive heart disease with heart failure; I50.9 Heart failure, unspecified; I42.9 Cardiomyopathy, unspecified; Z79.85 Long-term (current) use of injectable non-insulin antidiabetic drugs; Z95.810 Presence of automatic (implantable) cardiac defibrillator
CPT/HCPCS: 96374; 96375; 96361; 99284; 80053; 81003; 85025

== ENCOUNTER 2025-04-17 01:34 | Emergency (ER) | payer MEDICARE, OTHER, SELFPAY ==
[2025-04-17 01:36] VITALS: BP 109/53
[2025-04-17 02:01] VITALS: BMI 29.4
[2025-04-17 02:11] LABS: Hematocrit 40.3 % (37.0-47.0); Hemoglobin 13.6 g/dL (12.0-16.0); Mean Corp Hgb Conc. 33.7 g/dL (33.0-37.0); Mean Corpuscular Volume 89.6 fL (81.0-99.0); Nucleated Red Blood Cells % 0 %; Platelet Count 216 10^3/uL (130-400); Red Cell Dist. Width 12.2 % (11.5-14.5)
[2025-04-17 02:20] LABS: HCG, Serum Qualitative Screen Negative
[2025-04-17 02:22] LABS: ALT (SGPT) 21 U/L (0-35); AST (SGOT) 24 U/L (14-36); Albumin 4.4 g/dl (3.5-5.0); Alkaline Phosphatase 47 U/L (38-126); Blood Urea Nitrogen 18 mg/dl (7-17); Calcium 9.7 mg/dl (8.4-10.2); Carbon Dioxide 28 mmol/L (22-30); Chloride 105 mmol/L (98-107); Estimated Creatinine Clearance 54 ml/min; Glucose 95 mg/dl (70-99); Lipase 116 U/L (23-300); Potassium 3.8 mmol/L (3.5-5.1); Sodium 139 mmol/L (135-145); Total Protein 7.6 g/dl (6.3-8.2); eGFR 45.83
[2025-04-17 02:28] LABS: Urine Character Slightly Cloudy (Clear)
[2025-04-17] MEDS: ZOFRAN 4 MG IV (02:31)
[2025-04-17] MEDS: NSS 1000 IV (02:31)
[2025-04-17] MEDS: MORPHINE SULFATE 4 MG IV (02:32)
[2025-04-17 04:36] VITALS: BP 100/50
--- NOTE | 2025-04-17 05:01 | ED.GENMED ---
History of Present Illness
General
Chief Complaint: Abdominal Pain
Source: patient
Exam Limitations: none
Time Seen by Provider: 04/17/25 01:44
Nursing documentation reviewed up to this point in time: agreed with
History of Present Illness
History of Present Illness:
see MDM
Past History
Past History
ED Past Medical History: Hypercholesterolemia, NIDDM, Psychiatric (Anxiety, Depression) and Other (Hereditary cardiomyopathy status post AICD)
ED Past Surgical History: Cardiac (Pacer/defib), (X 2) and Other (Deviated septum, Vein stripping with vein ablation, tummy tuck)
Social History
Tobacco: Non-smoker
Alcohol: None
Personal:
Living: with family
Family History
Family History: Other (Hereditary cardiomyopathy)
Review of Systems
Review of Systems
Allergies reviewed?: Yes
All Other Systems: Not applicable
Phy Exam
Physical Exam
Physical Exam:
GENERAL: Alert , in no apparent distress, does not appear uncomfortable
EYE: pupils equal and reactive
NECK: Supple
ENT: o/p clr, mmm.
CARDIAC: Regular rate and rhythm .
LUNGS: Clear breath sounds bilaterally, no acute respiratory distress, no wheezes/rales/rhonchi
ABDOMEN: Soft, mild umbilical tenderness, no distension, , no r/g, no cvat, normal bowel sounds
NEUROLOGICAL: Alert and oriented, no focal neuro deficits
SKIN: Warm and dry, skin intact.
MUSCULOSKELETAL: No edema, well perfused. neg shahida's sign
PSYCH: Normal and appropriate interaction.
Course
Orders/Labs/Results
Orders:
Orders
04/17/25 01:49
IV Insert/Care/Rem.- Treatment PRN
04/17/25 02:02
Complete Blood Count/With Diff Urgent
Comprehensive Metabolic Panel Urgent
HCG, Serum Qualitative Screen Urgent
Comment: .
Lipase Urgent
Urinalysis Reflex To Culture Urgent
Date Specimen was Collected: 04/17/25
Time Specimen was Collected: 01:49
04/17/25 02:13
Electrocardiogram (*1) Urgent
Reason for Study: Abdominal Pain
EKG- Treatment ONCE
Morphine Sulfate 4 mg IV NOW STA
Ondansetron Injectable [Zofran] 4 mg IV NOW STA
04/17/25 02:14
0.9% Sodium Chloride 1000 ml [Nss] 1,000 ml IV BOLUS
04/17/25 02:30
CT Abd/Pel (IV only)-DH only Urgent
Comment:
Reason For Exam: aBd pain, nausea,
Abnormal Lab Results
04/17/25
02:02
WBC 12.6 H 10^3/uL
(4.8-10.8)
MPV 10.6 H fL
(7.4-10.4)
Abs Immat Gran (auto) 0.1 H 10^3/uL
(0-0.05)
Absolute Neuts (auto) 8.2 H 10^3/uL
(1.4-6.5)
Absolute Monos (auto) 1.4 H 10^3/uL
(0.1-0.6)
Monocytes % 11.0 H %
(1.7-9.3)
BUN 18 H mg/dl
(7-17)
Creatinine 1.4 H mg/dL
(0.6-1.0)
Urine Glucose 4+ A
(Negative)
04/17/25 02:02
04/17/25 02:02
Vital Signs
Initial and Last Documented VS:
Initial Vital Signs
Temp Pulse Resp BP Pulse Ox
36.7 C 70 20 109/53 98
04/17/25 01:36 04/17/25 01:36 04/17/25 01:36 04/17/25 01:36 04/17/25 01:36
Last Documented Vital Signs
Temp Pulse Resp BP Pulse Ox
36.7 C 64 20 100/50 100
04/17/25 01:36 04/17/25 04:36 04/17/25 04:36 04/17/25 04:36 04/17/25 05:05
MDM/Problems Addressed
Differential Diagnosis Includes:
see MDM
MDM/Problems Addressed:
Note:
CHIEF COMPLAINT(S)
Abdominal cramping and indigestion-related discomfort.
HISTORY OF PRESENT ILLNESS
The patient is a female with a history of diabetes and cardiomyopathy requiring pacer, who presents with abdominal cramping and indigestion. The cramps began two weeks ago after a similar occurrence was treated in the emergency department in
August and two weeks prior. The patient reported sudden onset of cramping after dinner and subsequent discomfort. She states, 'I was screaming and bending at home for a couple of hours,' indicating significant discomfort. Past episodes suggested a
pattern following dosage of her diabetic medication, particularly on evenings when she performs her dosing. The patient experienced similar symptoms after injecting her ozempic and then 2 days later havnig abd pain.
She noted the pain intensity today as 5 out of 10 now, was 10/10 at home; . The abdominal cramping sometimes accompanied a sensation morgan to indigestion, for which she attempted symptomatic relief with medications like Pepsid. She reported, 'I feel
really nauseous for one to two days usually,' post medication dosing.
pt was here 2 weeks ago with same symptoms, similar time frame 2 days after injecting her ozempic
she has been on the same dose for years 2 mg, which is maximum dose
she has also had 2 other previous visits last year for simliar pain all similar time frame to time of last injection
pt has never reduced the dose to see if this helps.
she has had c sections and tummy tuck
denies diarrhea, constipation, last BM today, no fever, chlils, urinary syptoms, cp, sob.
PAST MEDICAL AND SURGICAL HISTORY
- Diabetes
- Hereditary cardiomyopathy necessitating an implantable cardioverter-defibrillator (three battery replacements to date).
- Two sections
- No gallbladder surgery
EXTERNAL RECORDS REVIEWED
Previous records indicated a computed tomography scan of the abdomen during an initial emergency visit, showing no acute pathology. Recent emergency department records also described reassuring blood work findings.
CHRONIC MEDICAL CONDITIONS SIGNIFICANTLY AFFECTING CARE
- Diabetes
- Hereditary cardiomyopathy with associated device implantation
SOCIAL HISTORY
- Denies smoking, alcohol, recreational drug use, and marijuana.
REVIEW OF SYSTEMS
- Gastrointestinal: Abdominal cramping, indigestion, nausea.
- Cardiovascular: Known cardiomyopathy, no current symptoms related to cardiac distress.
PHYSICAL EXAM
Nursing notes reviewed and vital signs reviewed. Abdominal examination did not reveal tenderness on manual palpation. Normal bowel sounds noted.
PROBLEM LIST
Acute:
- Abdominal cramping
- Nausea and indigestion
Chronic:
- Diabetes
- Hereditary cardiomyopathy
PLAN
- Administer intravenous fluids and nausea medication
- Consider antispasmodic medication for symptomatic relief of stomach cramping, such as Bentyl
- Repeat laboratory workup to compare with previous results for reassurance
- Monitor and assess the need for imaging if symptoms escalate or persist
- Referral to gastroenterology for further evaluation, including potential endoscopy
DIFFERENTIAL DIAGNOSIS
The Differential Diagnosis includes, in no particular order and is not limited to:
1. Medication-induced gastrointestinal side effects
2. Non-ulcer dyspepsia
3. Peptic ulcer disease
4. Gastroparesis
5. Gastroesophageal reflux disease (GERD)
6. Gallbladder disease
7. Irritable bowel syndrome (IBS)
8. Viral gastroenteritis
9. Pancreatitis
10. Small bowel obstruction
CARE-UPDATE
04/17/25 - 03:58
The patient reports feeling better during this visit. Notably, there has been a mild increase in the white blood cell count 12.8, which could be due to several factors including stress or a transient condition. Kidney function tests also show slight
elevation, possibly indicating mild dehydration. The urine test showed no signs of infection. The results of the scan are still pending, but if normal and considering the patients improved condition, the elevated counts could be related to a
temporary issue. The patient is unable to undergo an MRI due to the age of pacemaker wires, thus a CT scan is planned to assess organ condition. Follow-up is needed once scan results are available.
CARE-UPDATE
04/17/25 - 04:30
The appendix and gallbladder appear normal, and no bowel obstruction was observed. The small bowel shows slight distension, possibly due to a viral stomach issue or functional ileus. The patient is currently not vomiting or experiencing severe pain,
suggesting conservative management with bowel rest and a bland diet is appropriate. Based on the imaging findings and patients status, discharge home with instructions for hydration and monitoring symptoms is advised. If pain worsens, or vomiting
occurs, return for reassessment. A follow-up outpatient CT scan with oral and IV contrast is recommended to further evaluate a noted lesion, likely a superimposed bowel loop or lymph node. Patients use of Ozempic may contribute to GI motility
issues; dose adjustment to be discussed with prescribing physician.
offered obs vs home, pt prefers home; return precautions
*Pulse Oximetry
SaO2: 100
Oxygen Mode of Delivery: Room air
Patient hypoxic: no (100)
*Critical Care Note
Total Time (30-74mins, 75-104mins- exclusive of procedures): Not Applicable
ED Attending Note
-
Portions of this chart may have been created with voice recognition software.� Occasional wrong word or��sound alike� substitutions may have occurred due to the inherent limitations of voice recognition software.
Discharge Plan
Departure
Patient Disposition: Home (Routine Discharge)
Date of Disposition: 04/17/25
Time of Disposition: 04:30
Patient with high blood pressure during this ER visit?: No
Condition: Fair
Covid-19: Not Applicable
Discharge Problem:
Abdominal pain
Instructions: Abdominal Pain
Prescriptions:
No Action
furosemide 40 MG tablet
60 mg PO DAILY
lisinopril 20 MG tablet
10 mg PO HS
spironolactone 25 MG tablet
25 mg PO DAILY
lorazepam 1 MG tablet
1 mg PO Q4HPRN PRN (Reason: anxiety)
magnesium 200 MG tablet
400 mg PO DAILY
atorvastatin 10 MG tablet
20 mg PO DAILY
atomoxetine [Strattera] 60 MG capsule
60 mg PO DAILY
lorazepam 2 MG tablet
2 mg PO HS
diphenhydramine HCl [Banophen] 25 MG capsule
25 mg PO Q4HPRN PRN (Reason: allergies)
ivabradine [Corlanor] 7.5 MG tablet
7.5 mg PO BID
Jardiance 10 MG tablet
10 mg PO DAILY
melatonin 3 MG tablet
12 mg PO HS
bupropion HCl 100 MG tablet sustained-release 12 hr
100 mg PO DAILY
vitamin B complex 1 TAB tablet
1 tab PO DAILY
weddgcnz-wbx-aijei acid-lutein 1 EACH tablet,chewable
2 ea PO DAILY
Fiber Gummies 2 GM tablet,chewable
4 gm PO QPM
carvedilol phosphate 40 MG capsule, ER multiphase 24 hr
80 mg PO HS
Ozempic 2 mg/dose (8 mg/3 mL) Pen Injector
2 mg SC WEEKLY
Referrals:
UNKNOWN - PT DOES,NOT KNOW [Family Provider]
Activity Restrictions/Additional Instructions:
Your CAT scan showed a very subtle prominent area of small bowel which could be an ileus which is a pause of the bowels or could be just a viral infection. You also had a small area in the right lower quadrant that does need follow-up with a CAT
scan with oral and IV contrast, it could just be overlapping bowel or could be a lymph node. Regardless your pain improved, you were given some IV fluids and were a little bit dehydrated. Make sure to have your kidney function rechecked by your
doctor in a week or 2. For now try clear liquids for 24 hours, increase as tolerated to bland food. Should you get fever, worsening abdominal pain, vomiting, bloody diarrhea, inability to pass gas return to the ER immediately. Otherwise follow-up
with your doctor. You may want to consider reducing your Ozempic dose
Interventions
Interventions:
*Risk Screen - Suicide Last Done: 04/17/25 01:36
*General Assessment Last Done: 04/17/25 02:38
*Neglect/Abuse Screening Last Done: 04/17/25 01:36
*ED- Fall Risk Assessment Last Done: 04/17/25 01:36
*ED COVID-19 Vaccine History Last Done: 04/17/25 01:36
*Nursing Disposition Last Done: 04/17/25 04:50
UY-Dxswzs-Syhbtwfsst Assessment Last Done: 04/17/25 02:38
Discharge Date and Time
Discharge Date/Time: 04/17/25 05:43
Print Language: CHINESE
== END 2025-04-17 05:43 | disposition home or self-care (01) ==
LOC: EMR 01:34
PROVIDERS: EMERGENCY PHYSICIAN Emergency Medicine
DX: R10.9 Unspecified abdominal pain (principal); E11.9 Type 2 diabetes mellitus without complications; E78.00 Pure hypercholesterolemia, unspecified; I42.9 Cardiomyopathy, unspecified; F41.9 Anxiety disorder, unspecified; F32.A Depression, unspecified; Z79.84 Long term (current) use of oral hypoglycemic drugs; Z95.810 Presence of automatic (implantable) cardiac defibrillator; Z82.49 Family history of ischemic heart disease and other diseases of the circulatory system
CPT/HCPCS: 99284; 96374; 96375; 74177; 80053; 81003; 83690; 84703; 85025; 93005; Q9967

== ENCOUNTER → 2025-04-21 11:12 | Outpatient (REF) | payer MEDICARE, OTHER, SELFPAY ==
[2025-04-21 11:38] LABS: Hematocrit 39.5 % (37.0-47.0); Hemoglobin 12.8 g/dL (12.0-16.0); Mean Corp Hgb Conc. 32.4 g/dL (33.0-37.0); Mean Corpuscular Volume 91.4 fL (81.0-99.0); Nucleated Red Blood Cells % 0 %; Platelet Count 199 10^3/uL (130-400); Red Cell Dist. Width 12.4 % (11.5-14.5)
[2025-04-21 12:06] LABS: Blood Urea Nitrogen 22 mg/dl (7-17); Calcium 8.9 mg/dl (8.4-10.2); Carbon Dioxide 28 mmol/L (22-30); Chloride 105 mmol/L (98-107); Glucose 139 mg/dl (70-99); Potassium 3.6 mmol/L (3.5-5.1); Sodium 138 mmol/L (135-145); eGFR > 60.00
== END ==
LOC: REG 11:12
PROVIDERS: ATTENDING PHYSICIAN Family Medicine
DX: R79.89 Other specified abnormal findings of blood chemistry (principal)
CPT/HCPCS: 36415; 80048; 85025

== ENCOUNTER → 2025-04-21 15:17 | Outpatient (REF) | payer MEDICARE, OTHER, SELFPAY | LOC: RAD 15:17 | PROVIDERS: ATTENDING PHYSICIAN Family Medicine | DX: R93.5 Abnormal findings on diagnostic imaging of other abdominal regions, including retroperitoneum (principal) | CPT/HCPCS: 74177; Q9967 ==

== ENCOUNTER → 2025-05-23 13:59 | Outpatient (REF) | payer MEDICARE, OTHER, SELFPAY ==
--- NOTE | 2025-05-23 15:10 | CARDSERVDEF ---
Echocardiogram with Definity completed after protocol screening completed. Allergies verified.
Patent IV site: _Right antecubital____
IV site flushed with 0.9% NaCl pre and post administration.
Diluted bolus method utilized to enhance visualization of ventricular hernandez.
Total volume given: __4__ mL
Patient tolerated all procedures well without complications.
== END ==
LOC: RCS 13:59
PROVIDERS: ATTENDING PHYSICIAN Internal Medicine Cardiovascular Disease; FAMILY PHYSICIAN Family Medicine
DX: I50.30 Unspecified diastolic (congestive) heart failure (principal)
CPT/HCPCS: 93307; Q9957

== ENCOUNTER 2025-07-25 17:34 | Emergency (ER) | payer MEDICARE, OTHER, SELFPAY ==
[2025-07-25 17:45] VITALS: BP 96/66
[2025-07-25 18:10] LABS: Hematocrit 39.7 % (37.0-47.0); Hemoglobin 13.5 g/dL (12.0-16.0); Mean Corp Hgb Conc. 34.0 g/dL (33.0-37.0); Mean Corpuscular Volume 86.9 fL (81.0-99.0); Nucleated Red Blood Cells % 0 %; Platelet Count 210 10^3/uL (130-400); Red Cell Dist. Width 12.3 % (11.5-14.5)
[2025-07-25 18:32] LABS: HCG, Serum Qualitative Screen Negative
[2025-07-25 18:36] LABS: ALT (SGPT) 23 U/L (0-35); AST (SGOT) 23 U/L (14-36); Albumin 4.0 g/dl (3.5-5.0); Alkaline Phosphatase 53 U/L (38-126); Blood Urea Nitrogen 19 mg/dl (7-17); Calcium 9.5 mg/dl (8.4-10.2); Carbon Dioxide 28 mmol/L (22-30); Chloride 101 mmol/L (98-107); Glucose 95 mg/dl (70-99); Lipase 140 U/L (23-300); Potassium 4.1 mmol/L (3.5-5.1); Sodium 132 mmol/L (135-145); Total Protein 7.2 g/dl (6.3-8.2); eGFR > 60.00
--- NOTE | 2025-07-25 20:11 | ED.GENMED ---
History of Present Illness
General
Chief Complaint: Abdominal Symptoms
Source: patient
Exam Limitations: none
Time Seen by Provider: 07/25/25 19:45
History of Present Illness
History of Present Illness:
50-year-old female presents complaining of abdominal discomfort and vomiting similar to what she has had before with increased dose of Ozempic. She has had a history of ileus. This feels similar. No chest pain. She notes the pain is cramping in
nature for quite severe throughout the entire abdomen. She is moving her bowels no urinary symptoms. Recently she did increase her dose of Ozempic.
Past History
Past History
ED Past Medical History: Hypercholesterolemia, NIDDM, Psychiatric (Anxiety, Depression) and Other (Hereditary cardiomyopathy status post AICD)
ED Past Surgical History: Cardiac (Pacer/defib), (X 2) and Other (Deviated septum, Vein stripping with vein ablation, tummy tuck)
Social History
Tobacco: Non-smoker
Alcohol: None
Personal:
Living: with family
Family History
Family History: Other (Hereditary cardiomyopathy)
Phy Exam
Physical Exam
Physical Exam:
General: Well-appearing female no acute respiratory distress
HEENT: Normal cephalic atraumatic
Heart: Regular rate and rhythm
Lungs: Clear no wheeze
Abdomen soft mildly diffusely tender no guarding nondistended
Extremities: No cyanosis
Course
Orders/Labs/Results
Orders:
Orders
07/25/25 17:51
Test Result ONCE
07/25/25 17:57
Complete Blood Count/With Diff Urgent
Comprehensive Metabolic Panel Urgent
HCG, Serum Qualitative Screen Urgent
Lactic Acid Urgent
Lipase Urgent
07/25/25 20:09
0.9% Sodium Chloride 1000 ml [Nss] 1,000 ml IV BOLUS
Ketorolac [Toradol] 15 mg IV NOW STA
Ondansetron Injectable [Zofran] 4 mg IV NOW STA
CR Obstruct Series W/pa Chest Urgent
Comment:
Reason For Exam: abdominal pain
07/25/25 21:21
Morphine Sulfate 4 mg IV NOW STA
Abnormal Lab Results
07/25/25
17:57
MPV 10.6 H fL
(7.4-10.4)
Absolute Neuts (auto) 7.3 H 10^3/uL
(1.4-6.5)
Absolute Monos (auto) 1.0 H 10^3/uL
(0.1-0.6)
Lymphocytes % 18.5 L %
(20.5-51.1)
Monocytes % 9.9 H %
(1.7-9.3)
Sodium 132 L mmol/L
(135-145)
BUN 19 H mg/dl
(7-17)
07/25/25 17:57
07/25/25 17:57
Vital Signs
Initial and Last Documented VS:
Initial Vital Signs
Temp Pulse Resp BP Pulse Ox
98.3 F 71 16 96/66 99
07/25/25 17:45 07/25/25 17:45 07/25/25 17:45 07/25/25 17:45 07/25/25 17:45
Last Documented Vital Signs
Temp Pulse Resp BP Pulse Ox
98.3 F 71 16 91/55 99
07/25/25 17:45 07/25/25 17:45 07/25/25 17:45 07/25/25 21:51 07/25/25 20:14
MDM/Problems Addressed
Differential Diagnosis Includes:
Abdominal discomfort and vomiting with history of ileus. Symptoms feel similar. She is moving her bowels. Exam nonfocal labs reviewed without significant finding including normal lipase. Will check obstruction series hydrate give Toradol and
Zofran.
*Pulse Oximetry
SaO2: 99
Oxygen Mode of Delivery: Room air
Patient hypoxic: no
*Critical Care Note
Total Time (30-74mins, 75-104mins- exclusive of procedures): Not Applicable
ED Attending Note
-
Portions of this chart may have been created with voice recognition software.� Occasional wrong word or��sound alike� substitutions may have occurred due to the inherent limitations of voice recognition software.
Discharge Plan
Departure
Patient Disposition: Home (Routine Discharge)
Date of Disposition: 07/25/25
Time of Disposition: 21:53
Patient with high blood pressure during this ER visit?: No
Discharge Problem:
Abdominal pain
Instructions: Abdominal Pain
Prescriptions:
No Action
furosemide 40 MG tablet
60 mg PO DAILY
lisinopril 20 MG tablet
10 mg PO HS
spironolactone 25 MG tablet
25 mg PO DAILY
lorazepam 1 MG tablet
1 mg PO Q4HPRN PRN (Reason: anxiety)
magnesium 200 MG tablet
400 mg PO DAILY
atorvastatin 10 MG tablet
20 mg PO DAILY
atomoxetine [Strattera] 60 MG capsule
60 mg PO DAILY
lorazepam 2 MG tablet
2 mg PO HS
diphenhydramine HCl [Banophen] 25 MG capsule
25 mg PO Q4HPRN PRN (Reason: allergies)
ivabradine [Corlanor] 7.5 MG tablet
7.5 mg PO BID
Jardiance 10 MG tablet
10 mg PO DAILY
melatonin 3 MG tablet
12 mg PO HS
bupropion HCl 100 MG tablet sustained-release 12 hr
100 mg PO DAILY
vitamin B complex 1 TAB tablet
1 tab PO DAILY
adzlgshd-afl-ypxhs acid-lutein 1 EACH tablet,chewable
2 ea PO DAILY
Fiber Gummies 2 GM tablet,chewable
4 gm PO QPM
carvedilol phosphate 40 MG capsule, ER multiphase 24 hr
80 mg PO HS
Ozempic 2 mg/dose (8 mg/3 mL) Pen Injector
2 mg SC WEEKLY
Referrals:
Erma Milton MD [Active, Gastroenterology]
Eunice Pardo E, DO [Family Provider]
Activity Restrictions/Additional Instructions:
As discussed, consider decreasing your dose of Ozempic. Continue current medications otherwise. Follow-up with your doctor and/or GI
Interventions
Interventions:
*Risk Screen - Suicide Last Done: 07/25/25 17:45
*General Assessment Last Done: 07/25/25 17:45
*Neglect/Abuse Screening Last Done: 07/25/25 17:45
*ED- Fall Risk Assessment Last Done: 07/25/25 17:50
*ED COVID-19 Vaccine History Last Done: 07/25/25 17:50
*ED Influenza Vaccine History Last Done: 07/25/25 17:50
*Nursing Disposition Last Done: 07/25/25 22:01
BL-Xowpsa-Aivhhvjnqs Assessment Last Done: 07/25/25 19:57
Discharge Date and Time
Discharge Date/Time: 07/25/25 22:11
Print Language: RUSSIAN
[2025-07-25] MEDS: TORADOL 15 MG IV (20:22)
[2025-07-25] MEDS: ZOFRAN 4 MG IV (20:26)
[2025-07-25] MEDS: NSS 1000 IV (20:26)
[2025-07-25] MEDS: MORPHINE SULFATE 4 MG IV (21:27)
[2025-07-25 21:51] VITALS: BP 91/55
== END 2025-07-25 22:11 | disposition home or self-care (01) ==
LOC: EMR 17:34
PROVIDERS: EMERGENCY PHYSICIAN Emergency Medicine; FAMILY PHYSICIAN Family Medicine
DX: R10.9 Unspecified abdominal pain (principal); R11.2 Nausea with vomiting, unspecified; E78.00 Pure hypercholesterolemia, unspecified; E11.9 Type 2 diabetes mellitus without complications; F41.8 Other specified anxiety disorders; I42.9 Cardiomyopathy, unspecified; Z82.49 Family history of ischemic heart disease and other diseases of the circulatory system; Z95.810 Presence of automatic (implantable) cardiac defibrillator
CPT/HCPCS: 99283; 96374; 96375; 96361; 74022; 80053; 83605; 83690; 84703; 85025